=== PATIENT | female | born 1940 | race Caucasian/White ===

== ENCOUNTER 2021-03-28 05:02 | Emergency (ER) | payer MEDICARE, BC, SELFPAY ==
--- NOTE | ~2021-03-28 | XR_ITS ---
XR chest 2V DATE: 03/28/2021 05:26 INDICATION: Palpitations. History of COPD, hypertension, heart failure TECHNIQUE: AP and lateral views COMPARISON: 03/26/2016 2 view chest FINDINGS: Cardiomegaly. Aortic calcification and mild unfolding. No hilar enlargement. No pulmonary i nfiltrate or consolidation, pleural effusion or pulmonary vascular congestion or pneumothorax is dete cted. IMPRESSION: Cardiomegaly and aortic atherosclerosis No active pulmonary disease Reviewed, dictated and finalized at location [facility]. [facility]
[2021-03-28 05:03] VITALS: BP 211/84; PULSE 65; RESP 18; TEMP 36.2; O2SAT 96
--- NOTE | 2021-03-28 05:07 | ECG_ITS ---
Measurements Intervals [place] Rate: 62 P: 12 W[place]: 181 QRS: 49 QRSD: 112 T: 57 QT: 427 QTc: 435 Interpretive Statements SINUS RHYTHM ATRIAL PREMATURE COMPLEX BORDERLINE AV CONDUCTION DELAY INTRAVENTRICULAR CONDUCTION DELAY BORDERLINE R WAVE PROGRESSION, ANTERIOR LEADS CONSIDER INFERIOR INFARCT, AGE INDETERMINATE BASELINE ARTIFACT- I, II, AVL, AVF, V1, V4-V5 ABNORMAL ECG Electronically Signed On 03-28-2021 6:27:48 [employer] COORDINATOR by Stephen Justin D.O.
--- NOTE | 2021-03-28 05:08 | ED.ARRPALP ---
HPI - Arrhythmia/Palpitations General Chief Complaint: Arrhythmia/Palpitations Stated Complaint: Palpitations Time Seen by Provider: 03/28/21 05:06 Source: patient History of Present Illness HPI narrative: Patient presents with heart palpitations. Reports he woke up around [id number] and felt like her heart was racing she also reported associated left arm pain. Arm pain was similar to her arthritis and chalked it up to weather changes. Her palpitations lasted approximately 1 hour and have now resolved. She initially monitoring her symptoms but a did not appear to be going away so she called EMS to come in and be evaluated. Reports now she feels well. She denied associated chest pain with her palpitations or worsening of her baseline shortness of breath. Patient reports she is normally on 1 to 2 L of oxygen at home she denies recent cough, fevers, congestion. Related Data Allergies Allergy/AdvReac Type Severity Reaction Status Date / Time amlodipine Allergy Unknown Verified 08/07/20 17:05 atorvastatin Allergy Unknown Verified 08/07/20 17:05 cyclobenzaprine Allergy Unknown Verified 08/07/20 17:05 levofloxacin Allergy Unknown Verified 08/07/20 17:05 simvastatin Allergy Unknown Verified 08/07/20 17:05 Review of Systems Review of Systems: CONSTITUTIONAL: Denies fever, chills, or sweats. EYES: Denies visual changes, redness, or discharge. ENT: Denies rhinorrhea, congestion, sore throat, or otalgia. CARDIOVASCULAR: Denies chest pain, or edema. RESPIRATORY: Denies cough or dyspnea. GASTROINTESTINAL: Denies abdominal pain, nausea, vomiting, or diarrhea. GENITOURINARY: Denies dysuria or hematuria. SKIN: Denies rash or itching. MUSCULOSKELETAL: Denies back pain, joint pain, or myalgia. NEUROLOGIC: Denies headache, numbness, dizziness, or weakness. PSYCHIATRIC: Denies anxiety or depression. All systems reviewed & are unremarkable except as noted in HPI and below PMFSH Past Medical History Medical History (Updated 03/28/21 @ 06:31 by Ron Beckman MD) COPD (chronic obstructive pulmonary disease) Heart failure Hypertension Family History Family History Father Family history of throat cancer Cerebrovascular accident Sibling Family history of throat cancer Family history of blood dyscrasia Family history of pulmonary embolism Mother Family history of malignant neoplasm of urinary bladder Hypertension Family history of type 2 diabetes mellitus Father Family history of throat cancer, Onset Age: 63 Mother Family history of malignant neoplasm of urinary bladder, Onset Age: 77 Other Diabetes mellitus Social History Social History (Updated 03/28/21 @ 05:09 by Ron Beckman MD) Smoking status: Former smoker Alcohol intake: current Exam Narrative: GENERAL: Well-appearing, well-nourished, and in no acute distress. HEAD: Normocephalic, atraumatic. EYES: PERRLA and EOMI. ENT: Nares clear, no rhinorrhea or epistaxis. Mucous membranes moist. NECK: Supple. No masses. CHEST: Clear to auscultation. No respiratory distress. No wheezes rales or rhonchi HEART: Regular rate and rhythm. No murmur heard. Normal peripheral pulses. ABDOMEN: Soft, nontender, nondistended, normal active bowel sounds. EXTREMITIES: Normal range of motion. 1+ symmetric pitting edema in the bilateral lower extremities SKIN: Warm, dry, no rash. NEURO: No focal deficits. Alert and oriented x3. PSYCH: Normal mood and affect. Course Reevaluation(s) Reevaluation #1: Patient is resting comfortably continues to be asymptomatic. Work-up reviewed with patient. Patient comfortable with outpatient plan. Date: 03/28/21 Time: 06:25 Vital Signs Vital signs: Vital Signs Temperature 36.2 C L 03/28/21 05:03 Pulse Rate 65 03/28/21 05:03 Respiratory Rate 18 03/28/21 05:03 Blood Pressure 211/84 H 03/28/21 05:03 Pulse Oximetry 96 03/28/21 05:03 T
[2021-03-28 05:36] VITALS: BP 195/58; PULSE 53
[2021-03-28 05:41] LABS: Basophils Percent Auto 0.7 % (0.2-1.2); Eosinophils Absolute Auto 0.2 K/mm3 (0-0.3); Hematocrit 35.7 % (37.0-47.0); Hemoglobin 11.6 g/dL (12.0-15.0); Immature Granulocyte Absolute 0.03 K/mm3 (0.00-0.031); Immature Granulocyte Percent A 0.5 % (0-0.5); Lymphocytes Absolute Auto 1.49 K/mm3 (0.9-3.2); Mean Corpuscular HGB Conc 32.5 g/dl (32-36); Mean Corpuscular Hemoglobin 29.8 pg (26-34); Mean Corpuscular Volume 91.8 fl (80-100); Mean Platelet Volume 9.9 fl (7.4-10.4); Monocytes Absolute Auto 0.6 K/mm3 (0.1-0.6); Monocytes Percent Auto 10.3 % (2.6-8.5); Neutrophils Absolute Auto 3.4 K/mm3 (1.3-6.7); Neutrophils Percent Auto 58.5 % (45.5-73.1); Platelet Count Result 236 k/mm3 (150-375); Red Blood Count 3.89 M/mm3 (4.2-5.4); Red Cell Distribution Width 13.6 % (11.5-14.5); White Blood Count 5.7 K/mm3 (4.5-10.0)
[2021-03-28 05:50] LABS: Add Urine Microscopic? YES; Appearance Urine Clear (Clear); Bilirubin Urine Negative (Negative); Blood Urine Negative (Negative); Color Urine Straw (Yellow); Glucose Urine UA 1+ mg/dL (Negative); Ketones Urine Negative (Negative); Leukocyte Esterase Ur Negative LEU/UL (Negative); Mucus Urine Rare /lpf; Nitrate Urine Negative (Negative); Protein Urine 2+ mg/dL (Negative); Specific Grav Ur 1.005 (1.001-1.035); Squamous Epithelial Cell Urine Few /hpf (Few); Urobilinogen Urine Negative mg/dL (<2.0); WBC Urine 0-3 /hpf
[2021-03-28 05:55] LABS: Prothrombin Time 13.3 Seconds (11.1-14.7)
[2021-03-28 05:56] LABS: Alanine Aminotransferase 12 U/L (4-35); Albumin Level 4.5 g/dL (3.5-5.1); Alkaline Phosphatase 68 U/L (38-126); Anion Gap 9 mmol/L (8-16); Aspartate Amino Transferase 18 U/L (14-36); Bilirubin,Total 0.4 mg/dL (0.2-1.3); Blood Urea Nitrogen 51 mg/dL (7-17); Calcium 10.2 mg/dL (8.4-10.2); Carbon Dioxide 29 mmol/L (22-30); Chloride 96 mmol/L (98-107); Estimated CRCL calculation 24 ml/min; Estimated Glomerular Filt Rate 24; Glucose 196 mg/dL (65-110); Partial Thromboplastin Time 30.2 SECONDS (22.3-36.8); Potassium 4.3 mmol/L (3.4-5.0); Sodium 134 mmol/L (137-145)
[2021-03-28 06:08] LABS: Troponin I < 0.012 ng/mL (0.000-0.034)
[2021-03-28 06:10] LABS: NT Pro B Type Natriuretic Pept 944 pg/mL (5-100)
[2021-03-28 06:39] VITALS: BP 148/68; PULSE 61; RESP 18; O2SAT 96
== END 2021-03-28 07:00 | disposition home or self-care (01) ==
PROVIDERS: Emergency Provider Emergency Medicine
DX: R00.2 Palpitations (principal); J44.9 Chronic obstructive pulmonary disease, unspecified; I11.0 Hypertensive heart disease with heart failure; I50.9 Heart failure, unspecified; M19.90 Unspecified osteoarthritis, unspecified site; Z87.891 Personal history of nicotine dependence; I49.1 Atrial premature depolarization; R94.31 Abnormal electrocardiogram [ECG] [EKG]; I45.9 Conduction disorder, unspecified
CPT/HCPCS: 36415; 71046; 80053; 81001; 83880; 84484; 85025; 85610; 85730; 93005; 99284